=== PATIENT | female | born 1960 | race Caucasian/White ===

== ENCOUNTER 2021-03-06 13:33 | Emergency (ER) | payer OTHER ==
[~2021-03-06] VITALS: Ht 160 cm; Wt 77.1 kg
[2021-03-06] MEDS ORDERED: LIDOCAINE 1% W/EPINEPHRINE 20 ML VIAL INJ ONE (15:30)
== END 2021-03-06 16:07 | disposition home or self-care (01) ==
LOC: ER 15:03
DX: K61.0 Anal abscess (principal)
CPT/HCPCS: 99282